=== PATIENT | male | born 1980 | race Caucasian/White ===

== ENCOUNTER 2024-09-12 15:28 | Emergency (ER) | payer OTHER ==
[~2024-09-12] VITALS: Ht 180.3 cm; Wt 74.8 kg
[2024-09-12 15:35] VITALS: BP 120/83; TEMP 37.2; O2SAT 100
[2024-09-12 15:38] VITALS: PULSE 70; RESP 20; O2SAT 97
[2024-09-12] MEDS ORDERED: NAPR-681 MT (17:38)
[2024-09-12] MEDS ORDERED: SULF1TAB48 MT (17:38)
== END 2024-09-12 17:55 | disposition home or self-care (01) ==
LOC: ER 15:28
DX: L02.414 Cutaneous abscess of left upper limb (principal); Z88.0 Allergy status to penicillin
CPT/HCPCS: 99281